=== PATIENT | male | born 1935 | race Caucasian/White ===

== ENCOUNTER 2019-05-23 16:15 | Inpatient (IN) | payer MEDICARE ==
[~2019-05-23] VITALS: Ht 185.4 cm; Wt 93.2 kg
--- NOTE | ~2019-05-23 | PR ---
[place], [place] PROGRESS NOTE NAME: ELIZABETH GU UNIT #: [id number] ROOM: 309 DOCTOR: FÉLIX CLEMENTE CNP BIRTHDATE: [birth year] DOS: 06/03/2019 CHIEF COMPLAINT: "Breakfast was good." SUMMARY OF THE VISIT: The patient was interviewed as he sat in the dining room, eating his breakfast. The patient engaged minimally in conversation with me. He does report that he slept well last night. Staff reports that the patient has been med compliant. He has not been exhibiting any sexual behaviors. He did sleep all night last night. No agitation or aggression noted by staff. MENTAL STATUS EXAMINATION: The patient is alert and oriented to himself. He was pleasant and cooperative with me. No rafi or hypomania noted. No delusions or paranoia noted. No psychotic symptoms noted. No auditory or visual hallucinations noted. The patient's mood was calm. Affect congruent with mood. No agitation, irritability or aggression noted at this time. PLAN: We will continue the patient's medications as prescribed. He appears to be tolerating them without any type of side effects. We will continue to encourage the patient to engage in individual and askew milieu activity, continue fall and safety precautions. Plan is to return the patient to the least restrictive environment once he is considered psychiatrically stable. Félix Clemente CNP CM:PNTRANS [phone] FÉLIX CLEMENTE CNP 06/03/19 0850 interface
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
--- NOTE | ~2019-05-23 | PR ---
[place], [place] PROGRESS NOTE NAME: ELIZABETH GU UNIT #: [id number] ROOM: 309 DOCTOR: DAYTON LOW MD BIRTHDATE: [birth year] DOS: 05/26/2019 INTERVAL NOTE CHIEF COMPLAINT: "The patient chanted in word salad." SUMMARY OF THE VISIT: The patient was attempted to be interviewed first in the dining area where he was sitting with many peers. He was loudly chanting almost nonsensical word salad. He was quite loud as I approached and called out his name, he did not even make eye contact. He seemed to be very driven and almost as if this was out of his control. Later after he was brought into the quiet room, he slumped in his chair and snooze briefly, only to have this behavior reoccur approximately 5 minutes later. Nurses report that this has been episodic throughout the day and the behavior does seem to be worsening. MENTAL STATUS: My mental status examination is limited today because of this bizarre behavior. PLAN: I will go ahead and increase his Depakote Sprinkles to 500 mg t.i.d. in an effort to decrease mood lability and continue to support and monitor this behavior. Engage in individual and askew milieu activity, returning to the least restrictive environment when psychiatrically stable. DAYTON LOW MD CM:PNTRANS [phone] DAYTON LOW MD 05/26/19 0856 interface
--- NOTE | ~2019-05-23 | PR ---
[place], [place] PROGRESS NOTE NAME: ELIZABETH GU UNIT #: [id number] ROOM: 309 DOCTOR: DAYTON LOW MD BIRTHDATE: [birth year] DOS: 06/01/2019 INTERVAL NOTE CHIEF COMPLAINT: "I am okay. I have enough here to eat and drink." SUMMARY OF THE VISIT: The patient was interviewed as he was finishing his breakfast. He reported to me that he was fine, that he had plenty of food and plenty of fluid and did not need anything more from me. He actually engaged in conversation. He did not make any bizarre statements or did not make bizarre noises or yell out. Nurses report, he had a much better 24 hours yesterday. MENTAL STATUS: He is alert and oriented with significant time gaps. Mood does seem to be trending towards euthymia. Affect is more appropriate. There is no rafi, hypomania or psychosis. Short term memory continues to be problematic. PLAN: I will continue his current psychotropic regimen, continue to support and monitor, engage in individual and askew milieu activity, returning to the least restrictive environment when psychiatrically stable. DAYTON LOW MD CM:PNTRANS [phone] DAYTON LOW MD 06/01/19 1029 interface
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
--- NOTE | ~2019-05-23 | PR ---
[place], [place] PROGRESS NOTE NAME: ELIZABETH GU UNIT #: [id number] ROOM: 309 DOCTOR: DAYTON LOW MD BIRTHDATE: [birth year] DOS: 05/31/2019 CHIEF COMPLAINT: The patient was singing nonsensically. SUMMARY OF THE VISIT: The patient was attempted to be interviewed as he was sitting in the dining area. He once again was singing, chanting and acting bizarrely. As I attempted to interview him, he did not respond to me. Nurses report that this behavior persists as well as sexually inappropriate behavior. Outwardly, he is tolerating the current medication regimen well without sedation, somnolence, extrapyramidal symptoms or tardive dyskinesia. MENTAL STATUS: He is alert and oriented to self. This morning, I was not able to elicit much useful information because of his bizarre behavior. We will continue to support and monitor. PLAN: I will increase his Provera from 10 mg 3 times a day to 20 mg twice daily in an effort to decrease his libido. We will monitor and support, engage in individual and askew milieu activity, returning to the least restrictive environment when psychiatrically stable. DAYTON LOW MD CM:PNTRANS 6 DAYTON LOW MD 05/31/19 0832 interface
--- NOTE | ~2019-05-23 | PR ---
[place], [place] PROGRESS NOTE NAME: ELIZABETH GU UNIT #: [id number] ROOM: 309 DOCTOR: DAYTON LOW MD BIRTHDATE: [birth year] DOS: 05/29/2019 INTERVAL NOTE CHIEF COMPLAINT: "Morning." SUMMARY OF THE VISIT: The patient was interviewed as he was resting in bed. He awoke with some verbal prompting and wished me good morning and then stared off into space. Nurses report, he still continues to have some sexual behavior and still has these episodes of bizarre verbalizations as well as crying. He did start Nuedexta yesterday and I will plan shortly to increase the dose to 1 capsule twice daily. MENTAL STATUS: He is alert and oriented to person, possibly place, although doubtful, not to time. Mood does still seem to be labile. Affect at times is inappropriate. He does process conversation slowly and short-term memory is problematic. PLAN: Nurses report that he is picking off the Exelon patches and placing it on his clothes. I will discontinue the patch in lieu of Exelon capsules 6 mg b.i.d. I will change the stop date for the Ativan p.r.n. to later in the month, so does not fall off. We will continue to support and monitor, engage in individual and askew milieu activity, returning to the least restrictive environment when psychiatrically stable. DAYTON LOW MD CM:PNTRANS 5 5 DAYTON LOW MD 05/29/1924 interface
--- NOTE | ~2019-05-23 | PR ---
[place], [place] PROGRESS NOTE NAME: ELIZABETH GU UNIT #: [id number] ROOM: 309 DOCTOR: DAYTON LOW MD BIRTHDATE: [birth year] DOS: 06/02/2019 CHIEF COMPLAINT: "Breakfast is good." SUMMARY OF THE VISIT: The patient was interviewed as he was eating his breakfast. He responded to me appropriately. He was even spontaneous at times. There was no yelling or babbling behavior. Nurses report that he went an entire day yesterday without any sexually inappropriate behavior. Outwardly, he does seem to be tolerating the medication regimen well. Nurses do note that some of his bizarre babbling and yelling out is triggered by socially stressful situations and anxiety. MENTAL STATUS: He is alert and oriented with time gaps. Mood does seem to be trending towards euthymia. Affect is more appropriate. There is no rafi, hypomania or psychosis. Short term memory continues to be very problematic. PLAN: I will go ahead and add Vistaril 25 mg t.i.d. in an effort to relieve some of his anxiety. We will see if this coupled with the Nuedexta will decrease the bizarre yelling and babbling. I will maintain the Provera to decrease his sexual inappropriate behavior, monitor for risks, benefits, continue to engage in individual and askew milieu, returning to the least restrictive environment when psychiatrically stable. DAYTON LOW MD CM:PNTRANS 2 6 DAYTON LOW MD 06/02/1928 interface
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
--- NOTE | ~2019-05-23 | PR ---
[place], [place] PROGRESS NOTE NAME: ELIZABETH GU UNIT #: [id number] ROOM: 309 DOCTOR: FÉLIX CLEMENTE CNP BIRTHDATE: [birth year] DOS: 06/04/2019 CHIEF COMPLAINT: "Breakfast was good." SUMMARY OF THE VISIT: The patient was interviewed as he sat in the dining room, eating his breakfast. He did engage minimally in conversation with me. Staff reports that he slept well last night. His appetite has been good. He has been compliant with medications. He has not exhibited any inappropriate behaviors. MENTAL STATUS EXAMINATION: The patient is alert and oriented to self. He was pleasant and cooperative with me. No rafi or hypomania noted. No delusions or paranoia noted. No psychotic symptoms noted. No auditory or visual hallucinations noted. His mood was calm. Affect congruent with mood. No agitation, irritability or aggression noted at this time. PLAN: We will continue the patient's medications as prescribed as he appears to be tolerating them without any type of side effects. Continue to encourage the patient to engage in individual and askew milieu activity. Continue fall and safety precautions. Plan is to return the patient to the least restrictive environment once he is considered psychiatrically stable. Félix Clemente CNP CM:PNTRANS [phone] FÉLIX CLEMENTE CNP 06/04/19 0943 interface
--- NOTE | ~2019-05-23 | PR ---
[place], [place] PROGRESS NOTE NAME: ELIZABETH GU UNIT #: [id number] ROOM: 309 DOCTOR: DAYTON LOW MD BIRTHDATE: [birth year] DOS: 05/27/2019 INTERVAL NOTE CHIEF COMPLAINT: "Oh, good morning, how are you?" SUMMARY OF THE VISIT: The patient was interviewed as he was eating his breakfast. He was much more goal directed this morning and actually conversed with me. He was polite with me, although nurses report that he has been increasingly more sexually inappropriate and has even been calling the other patients here names. MENTAL STATUS: He is alert and oriented to person, place, but not time. Mood does seem to be still somewhat labile, but improving. There is no hypomania, rafi or psychosis. Short-term memory has gaps. PLAN: I will maximize out his Exelon patch to 13.3 mg a day and check a valproic acid level in the morning. We will continue to engage in individual and askew milieu activity, returning to the least restrictive environment when psychiatrically stable. DAYTON LOW MD CM:PNTRANS [id number] DAYTON LOW MD 05/27/19 1032 interface
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
--- NOTE | ~2019-05-23 | PR ---
[place], [place] PROGRESS NOTE NAME: ELIZABETH GU UNIT #: [id number] ROOM: 309 DOCTOR: DAYTON LOW MD BIRTHDATE: [birth year] DOS: 05/30/2019 CHIEF COMPLAINT: "Breakfast is good." SUMMARY OF THE VISIT: The patient was interviewed when he was eating his breakfast. He stopped briefly and told me that breakfast was good. He was able to engage in conversation. Most of it was understandable. At times, he would go off into a nonsensical stream; however, a little bit later as I was continuing rounding, he began loudly chanting once again. Nurses report that the frequency and intensity of this behavior does seem to be lessening. Outwardly, he was not exhibiting any sedation, somnolence, extrapyramidal symptoms or tardive dyskinesia. MENTAL STATUS: He is alert and oriented to self, doubtful place, certainly not time. Mood does seem to be relatively euthymic. Affect is appropriate for the most part. Speech rate and pattern is slow and deliberate. Thoughts are fragmented and disjointed. Short term memory is poor. PLAN: I will maximize out the dose of Nuedexta, bringing it to 20-10 one capsule every 12 hours. We will monitor for risk, benefit, engage in individual and askew milieu activity, returning to the least restrictive environment when psychiatrically stable. DAYTON LOW MD CM:PNTRANS [id number] DAYTON LOW MD 05/30/19 1047 interface
--- NOTE | ~2019-05-23 | PR ---
[place], [place] PROGRESS NOTE NAME: ELIZABETH GU UNIT #: [id number] ROOM: 309 DOCTOR: DAYTON LOW MD BIRTHDATE: [birth year] DOS: 06/05/2019 CHIEF COMPLAINT: "Oh, I am okay, thank you." SUMMARY OF THE VISIT: The patient was interviewed as he was sitting in the dining room. He had already eaten breakfast. He was bright and pleasant upon approach and offered no complaints. Nurses report that his spontaneous inappropriate verbalizations have decreased in frequency and intensity and he has not been exhibiting sexually inappropriate behavior. Outwardly, he seems to be tolerating the current medication regimen well without sedation, somnolence, extrapyramidal symptoms or tardive dyskinesia. MENTAL STATUS: He is alert and oriented with significant time gaps. Mood does seem to be more euthymic. Affect is more appropriate. There is no rafi, hypomania or psychosis. Short term memory is problematic. PLAN: I will continue his current psychotropic regimen, continue to engage in individual and askew milieu activity, returning then to the least restrictive environment when psychiatrically stable. DAYTON LOW MD CM:PNTRANS 0 2 DAYTON LOW MD 06/05/1944 interface
[2019-05-23] MEDS ORDERED: AMLODIPINE BESYL5 MG PO (16:30)
[2019-05-23] MEDS ORDERED: ASPIRIN CHEWABL81 MG PO (16:31)
[2019-05-23] MEDS ORDERED: RISPERDAL0.5 MG PO (16:32)
[2019-05-23] MEDS ORDERED: VITAMIN D31000 UNI1 PO (16:32)
[2019-05-23] MEDS ORDERED: ISOSORBIDE MON120 MG PO (16:33)
[2019-05-23] MEDS ORDERED: FINASTERIDE5 M1 PO (16:33)
[2019-05-23] MEDS ORDERED: PRAVACHOL80 M1 PO (16:34)
[2019-05-23] MEDS ORDERED: COREG12.5 M1 PO (16:35)
[2019-05-23] MEDS ORDERED: XARE15TA PO (16:35)
[2019-05-23] MEDS ORDERED: NAMENDA10 MG PO (16:37)
[2019-05-23] MEDS ORDERED: PROVERA10 MG PO (16:38)
[2019-05-23 22:50] VITALS: BP 137/83
[2019-05-24 07:05] LABS: BASO # 0.1 10*3/uL (0.0-0.1); EOS # 0.5 10*3/uL (0.0-0.4); EOS % 6.5 % (1.0-4.0); HEMATOCRIT 46.8 % (42.0-52.0); LYMPH % 37.6 % (27.0-41.0); MEAN CELL VOLUME 94.9 fl (80.0-94.0); MEAN CORPUSCULAR HGB 30.4 pg (27.0-31.0); MEAN CORPUSCULAR HGB CONC 32.1 g/dl (33.0-37.0); MONO % 12.7 % (3.0-9.0); NEUT # 3.3 10*3/uL (2.3-7.9); NEUT % 41.9 % (47.0-73.0); PLATELET COUNT AUTOMATED 148 10*3/uL (130-400); RED BLOOD COUNT 4.93 10*6/uL (4.50-5.90); RED CELL DISTRI WIDTH 14.2 % (0-14.5)
[2019-05-24 07:29] LABS: ALBUMIN 3.1 gm/dl (3.1-4.5); BUN 21 mg/dl (7-24); CHLORIDE 113 mmol/L (98-107); POTASSIUM 4.2 mmol/L (3.5-5.1); SODIUM 145 mmol/L (136-145)
[2019-05-24 07:42] LABS: ALKALINE PHOSPHATASE 43 U/L (45-117); CHOLESTEROL 87 mg/dL (<200); CREATININE 1.16 mg/dL (0.70-1.30); HDL CHOLESTEROL 21 mg/dl (40-60); LDL CHOLESTEROL 45 mg/dL (9-159); SGOT/AST 7 IU/L (3-35); SGPT/ALT 10 U/L (12-78); TRIGLYCERIDES 107 mg/dl (<150); VLDL CHOLESTEROL 21 mg/dL (6-40)
[2019-05-24 07:43] VITALS: BP 150/81
[2019-05-24 07:48] LABS: VITAMIN D, 25-HYDROXY 45.6 ng/mL (30-100)
[2019-05-24 20:00] VITALS: BP 142/79
[2019-05-25 08:00] VITALS: BP 140/84
[2019-05-25 20:19] VITALS: BP 125/70
[2019-05-26 08:00] VITALS: BP 138/64
[2019-05-26 19:52] VITALS: BP 125/64
[2019-05-27 07:34] VITALS: BP 131/65
[2019-05-27 19:36] VITALS: BP 113/67
[2019-05-28 07:14] VITALS: BP 145/87
[2019-05-28 19:32] VITALS: BP 126/82
[2019-05-29 09:39] VITALS: BP 111/68
[2019-05-29 19:05] VITALS: BP 128/70
[2019-05-30 07:59] VITALS: BP 126/88
[2019-05-30 18:58] VITALS: BP 117/76
[2019-05-31 07:56] VITALS: BP 133/78
[2019-05-31 19:28] VITALS: BP 136/80
[2019-06-01 07:57] VITALS: BP 143/89
[2019-06-01 19:08] VITALS: BP 140/70
[2019-06-02 07:41] VITALS: BP 122/82
[2019-06-02 19:10] VITALS: BP 120/65
[2019-06-03 07:19] VITALS: BP 130/68
[2019-06-03 19:08] VITALS: BP 127/68
[2019-06-04 07:39] VITALS: BP 139/80
[2019-06-04 19:46] VITALS: BP 121/82
[2019-06-05 07:32] VITALS: BP 123/75
[2019-06-05 19:43] VITALS: BP 128/74
[2019-06-06 07:42] VITALS: BP 135/78
[2019-06-06 19:51] VITALS: BP 133/79
[2019-06-07 07:33] VITALS: BP 130/76
[2019-06-07] MEDS ORDERED: HYDROXYZINE PAM25 M1 PO (08:45)
[2019-06-07] MEDS ORDERED: RIVASTIGMINE TAR3 M1 PO (08:45)
[2019-06-07] MEDS ORDERED: MEMANTINE HCL10 MG PO (08:45)
[2019-06-07] MEDS ORDERED: B121000 MCG/1 IM (08:46)
[2019-06-07] MEDS ORDERED: NEUDEXT PO (08:46)
[2019-06-07] MEDS ORDERED: MEDROXYPROGESTE10 M1 PO (08:46)
== END 2019-06-07 18:52 | DRG 883 ==
LOC: 3N
PROVIDERS: ADMIT Psychiatry & Neurology Psychiatry
DX: F63.81 Intermittent explosive disorder (principal); R73.9 Hyperglycemia, unspecified; E66.3 Overweight; E87.8 Other disorders of electrolyte and fluid balance, not elsewhere classified; F48.2 Pseudobulbar affect; D75.89 Other specified diseases of blood and blood-forming organs; F32.9 Major depressive disorder, single episode, unspecified; M19.90 Unspecified osteoarthritis, unspecified site; G30.9 Alzheimer's disease, unspecified; I11.0 Hypertensive heart disease with heart failure; F02.80 Dementia in other diseases classified elsewhere, unspecified severity, without behavioral disturbance, psychotic disturbance, mood disturbance, and anxiety; B35.1 Tinea unguium; I87.2 Venous insufficiency (chronic) (peripheral); L85.3 Xerosis cutis; I48.21 Permanent atrial fibrillation; N40.0 Benign prostatic hyperplasia without lower urinary tract symptoms; E78.5 Hyperlipidemia, unspecified; E04.9 Nontoxic goiter, unspecified; I73.9 Peripheral vascular disease, unspecified; I50.9 Heart failure, unspecified; Z95.0 Presence of cardiac pacemaker; Z79.899 Other long term (current) drug therapy; Z79.82 Long term (current) use of aspirin; Z68.27 Body mass index [BMI] 27.0-27.9, adult